=== PATIENT | male | born 1955 | race American Indian/Alaskan Native ===

== ENCOUNTER 2019-10-14 09:43 | Inpatient (IN) | payer OTHER ==
--- NOTE | 2019-10-14 10:29 | Emergency Department Report ---
HPI - General Chief Complaint: Dyspnea/Respdistress Time Seen by Provider: 10/14/19 10:18 - HPI HPI: This is a 64-year-old male who presents to the emergency department via EMS with a complaint of a few days of shortness of breath, mostly with exertion. However the patient is breathing fast while at rest sitting on the gurney. He also complains of chronic low back pain but his main reason for his hospital visit is the shortness of breath. He denies any chest pain, lower extremity swelling, cough, wheezing, nausea, vomiting or diaphoresis, but the patient does complain of intermittent subjective fever. He is a tobacco smoker but denies any illicit drug use. He denies any past medical history but has not seen a primary care physician in more than 20 years. No recent travel or sick contacts at home. No known exposure to anyone with Covid 19. ED Past Medical Hx - Past Medical History Previous Medical History?: No - Surgical History Past Surgical History?: No - Social History Smoking Status: Current Every Day Smoker Substance Use Type: None ED Review of Systems ROS: Stated complaint: MARGARITO Other details as noted in HPI Comment: All other systems reviewed and negative Constitutional: fever (subjective). denies: chills Eyes: denies: eye pain, vision change ENT: denies: ear pain, throat pain Respiratory: shortness of breath, SOB with exertion. denies: cough, wheezing Cardiovascular: denies: chest pain, edema Gastrointestinal: denies: abdominal pain, vomiting Genitourinary: denies: dysuria, discharge Musculoskeletal: denies: back pain, arthralgia Skin: denies: rash, lesions Neurological: denies: headache, weakness Physical Exam - Physical Exam Vital Signs: Vital Signs 10/14/19 10/14/19 10:13 10:17 Temperature 98.6 F Pulse Rate 106 H 111 H Respiratory 24 24 Rate Blood Pressure 121/19 Blood Pressure 115/95 [Left] O2 Sat by Pulse 97 97 Oximetry Physical Exam: GENERAL: The patient is well-developed well-nourished. HENT: Normocephalic. Atraumatic. Patient has moist mucous membranes. EYES: Extraocular motions are intact. NECK: Supple. Trachea is midline. CHEST/LUNGS: Clear to auscultation. Patient has tachypnea with some accessory muscle use. No cough heard during examination. HEART/CARDIOVASCULAR: Regular. There is mild tachycardia. There is no murmur. ABDOMEN: Abdomen is soft, nontender. Patient has normal bowel sounds. There is no abdominal distention. SKIN: Skin is warm and dry. NEURO: The patient is awake, alert, and oriented. The patient is cooperative. The patient has no focal neurologic deficits. Normal speech. MUSCULOSKELETAL: There is no tenderness or deformity. There is no limitation range of motion. ED Course Vital Signs 10/14/19 10/14/19 10:13 10:17 Temperature 98.6 F Pulse Rate 106 H 111 H Respiratory 24 24 Rate Blood Pressure 121/19 Blood Pressure 115/95 [Left] O2 Sat by Pulse 97 97 Oximetry - Consultations Consultation #1: 10/14/19 13:31 I spoke with the [place] physician, Dr. Zelaya, who is given us permission to admit this patient to our hospital and they will reevaluate tomorrow for possible transfer. ED Medical Decision Making - Lab Data Result diagrams: 10/14/19 10:57 10/14/19 17:07 - EKG Data -: EKG Interpreted by Me EKG shows normal: sinus rhythm, axis, intervals (prolonged RI interval), QRS complexes, ST-T waves (t wave inversions to diffuse leads) Rate: tachycardia (105 bpm) - EKG Data When compared to previous EKG there are: previous EKG unavailable 10/14/19 13:36 Sinus tach at 105 bpm, RI interval prolongation, T wave inversions to diffuse leads - Radiology Data Radiology results: image reviewed interpreted by me: Chest x-ray does not show any acute process. There are no pleural effusions, obvious pneumonia and there is no pneumothorax. No significant cardiomegaly. - Medical Decision Making This patient presents to the emergency department with a complaint of some shortness of breath that worsens with exertion. Without supplemental oxygen the patient does have tachypnea. Also at different times the patient will have adelina e mild hypoxia going as low as 92% on room air. He was placed on 2 L via nasal cannula but we continued to have to titrate up and the patient is now on a Venturi mask. Even with a Venturi mask the patient still has some tachypnea. Chest x-ray does not show any pneumonia, pleural effusions, pneumothorax, or any other acute process. The patient has some lab abnormalities. The patient has hyponatremia with a sodium of 122, low bicarb of 14, slightly elevated troponin of 0.036, and elevated inflammatory markers such as d-dimer, LDH, CRP and ferritin levels. Given the history of subjective fever, his shortness of breath, and the lab abnormalities, the patient is at least moderate suspicion for being COVID-19. The patient will be admitted to the hospital for further evaluation and treatment and was accepted for admission by the hospitalist service. The patient was placed in patient isolation and droplet precautions immediately upon arrival to the main emergency department. I wore full PPE gear including a surgical hat, goggles, N95 mask, surgical mask, gown, and double gloves for every encounter. Critical Care Time: Yes Critical care time in (mins) excluding proc time.: 35 Critical care attestation.: If time is entered above; I have spent that time in minutes in the direct care of this critically ill patient, excluding procedure time. My critical care time was spent on this patient during his initial evaluation, multiple re- evaluations, ordering interpretation of labs and imaging, discussion with the hospitalist service, discussion with the [place] physician, and multiple discussions with the patient. Critical Care Time: 35 minutes ED Disposition Clinical Impression: Suspected 2019 novel coronavirus infection, Hyponatremia syndrome, Elevated troponin, Elevated brain natriuretic peptide (BNP) level Dyspnea Qualifiers: Dyspnea type: shortness of breath Qualified Code(s): R06.02 - Shortness of breath; R06.00 - Dyspnea, unspecified; R06.01 - Orthopnea Disposition: OP ADMIT IP TO THIS HOSP Is pt being admited?: Yes Condition: Fair Time of Disposition: 13:34
[2019-10-14 11:19] LABS: Basophils % (Auto) 1.1 % (0.0-1.8); Eosinophils % (Auto) 0.9 % (0.0-4.3); Hemoglobin 14.5 gm/dl (11.8-15.2); Lymphocytes # (Auto) 0.9 K/mm3 (1.2-5.4); Lymphocytes % (Auto) 23.5 % (13.4-35.0); Mean Corpuscular HGB Conc 34 % (32-34); Mean Corpuscular Volume 89 fl (84-94); Monocytes # (Auto) 0.4 K/mm3 (0.0-0.8); Monocytes % (Auto) 9.7 % (0.0-7.3); Platelet Count 237 K/mm3 (140-440); Red Blood Count 4.82 M/mm3 (3.65-5.03); Red Cell Distribution Width 14.4 % (13.2-15.2)
[2019-10-14 11:27] LABS: INR 0.95 (0.87-1.13)
--- NOTE | 2019-10-14 11:31 | XRay Report ---
CHEST 1 VIEW INDICATION / CLINICAL INFORMATION: SOB. COMPARISON: None available. FINDINGS: SUPPORT DEVICES: None. HEART / MEDIASTINUM: No significant abnormality. LUNGS / PLEURA: No significant pulmonary or pleural abnormality. No pneumothorax. ADDITIONAL FINDINGS: No significant additional findings. IMPRESSION: No acute pulmonary or pleural abnormality Signer Name: Jese Johnson MD FACR Signed: 10/14/2019 11:27 AM Workstation Name: [id number]
[2019-10-14 11:38] LABS: Alanine Aminotransferase 29 units/L (7-56); Albumin 3.8 g/dL (3.9-5); BUN/Creatinine Ratio 15; Blood Urea Nitrogen 19 mg/dL (9-20); Calcium 10.1 mg/dL (8.4-10.2); Hemolysis Index 37
[2019-10-14 12:59] LABS: Chol/HDL Ratio 4.92 %; HDL Cholesterol 38 mg/dL (40-59); LDL Cholesterol,Direct 130 mg/dL (50-130)
--- NOTE | 2019-10-14 13:57 | History and Physical Report ---
History of Present Illness Date of examination: 10/14/19 Chief complaint: Shortness of breath History of present illness: 64-year-old male with no prior medical history presented to the emergency department via EMS with a complaint of a few days of shortness of breath, mostly with exertion. He denies any chest pain, lower extremity swelling, cough, wheezing, nausea, vomiting or diaphoresis, but the patient does complain of intermittent subjective fever. He is a tobacco smoker but denies any illicit drug use. No recent travel or sick contacts at home. No known exposure to anyone with Covid 19. Here in the ED, he was noted to have hyponatremia and respiratory failure and he was placed on oxygen and admitted to the hospital. Past History Past Medical History: No medical history Medications and Allergies Allergies Allergy/AdvReac Type Severity Reaction Status Date / Time No Known Allergies Allergy Unverified 10/14/19 12:13 Review of Systems Cardiovascular: shortness of breath Exam - Constitutional Vitals: Temp Pulse Resp BP Pulse Ox 98.6 F 111 H 24 115/95 98 10/14/19 10:13 10/14/19 10:17 10/14/19 10:17 10/14/19 10:17 10/14/19 10:17 General appearance: Present: no acute distress, well-nourished - EENT Eyes: Present: PERRL ENT: hearing intact, clear oral mucosa - Neck Neck: Present: supple, normal ROM - Respiratory Respiratory effort: normal Respiratory: bilateral: CTA - Cardiovascular Heart Sounds: Present: S1 & S2. Absent: rub, click - Extremities Extremities: pulses symmetrical, No edema Peripheral Pulses: within normal limits - Abdominal General gastrointestinal: Present: soft, non-tender, non-distended, normal bowel sounds Male genitourinary: Present: normal - Integumentary Integumentary: Present: clear, warm, dry - Musculoskeletal Musculoskeletal: gait normal, strength equal bilaterally - Psychiatric Psychiatric: appropriate mood/affect, intact judgment & insight - Neurologic Neurologic: CNII-XII intact, moves all extremities HEART Score - HEART Score Troponin: Troponin T 0.036 ng/mL (0.00-0.029) H 10/14/19 10:57 Results - Labs CBC & Chem 7: 10/14/19 10:57 10/14/19 12:14 Labs: Laboratory Last Values WBC 4.0 K/mm3 (4.5-11.0) L 10/14/19 10:57 RBC 4.82 M/mm3 (3.65-5.03) 10/14/19 10:57 Hgb 14.5 gm/dl (11.8-15.2) 10/14/19 10:57 Hct 43.0 % (35.5-45.6) 10/14/19 10:57 MCV 89 fl (84-94) 10/14/19 10:57 MCH 30 pg (28-32) 10/14/19 10:57 MCHC 34 % (32-34) 10/14/19 10:57 RDW 14.4 % (13.2-15.2) 10/14/19 10:57 Plt Count 237 K/mm3 (140-440) 10/14/19 10:57 Lymph % (Auto) 23.5 % (13.4-35.0) 10/14/19 10:57 [place] % (Auto) 9.7 % (0.0-7.3) H 10/14/19 10:57 Eos % (Auto) 0.9 % (0.0-4.3) 10/14/19 10:57 Baso % (Auto) 1.1 % (0.0-1.8) 10/14/19 10:57 Lymph # 0.9 K/mm3 (1.2-5.4) L 10/14/19 10:57 [place] # 0.4 K/mm3 (0.0-0.8) 10/14/19 10:57 Eos # 0.0 K/mm3 (0.0-0.4) 10/14/19 10:57 Baso # 0.0 K/mm3 (0.0-0.1) 10/14/19 10:57 Seg Neutrophils % 64.8 % (40.0-70.0) 10/14/19 10:57 Seg Neutrophils # 2.6 K/mm3 (1.8-7.7) 10/14/19 10:57 PT 12.8 Sec. (12.2-14.9) 10/14/19 10:57 INR 0.95 (0.87-1.13) 10/14/19 10:57 D-Dimer 390.46 ng/mlDDU (0-234) H 10/14/19 12:14 Sodium 122 mmol/L (137-145) L 10/14/19 10:57 Potassium 4.8 mmol/L (3.6-5.0) 10/14/19 10:57 Chloride 85.6 mmol/L (98-107) L 10/14/19 10:57 Carbon Dioxide 14 mmol/L (22-30) L 10/14/19 10:57 Anion Gap 27 mmol/L 10/14/19 10:57 BUN 19 mg/dL (9-20) 10/14/19 10:57 Creatinine 1.3 mg/dL (0.8-1.3) 10/14/19 10:57 Estimated GFR > 60 ml/min 10/14/19 10:57 BUN/Creatinine Ratio 15 % 10/14/19 10:57 Glucose 111 mg/dL (75-100) H 10/14/19 12:14 Calcium 10.1 mg/dL (8.4-10.2) 10/14/19 10:57 Ferritin 526.5 ng/mL (30.0-300.0) H 10/14/19 12:14 Total Bilirubin 0.90 mg/dL (0.1-1.2) 10/14/19 10:57 AST 35 units/L (5-40) 10/14/19 10:57 ALT 29 units/L (7-56) 10/14/19 10:57 Alkaline Phosphatase 91 units/L (35-129) 10/14/19 10:57 Lactate Dehydrogenase 271 units/L (91-180) H 10/14/19 12:14 Troponin T 0.036 ng/mL (0.00-0.029) H 10/14/19 10:57 C-Reactive Protein 5.00 mg/dL (0.00-1.30) H 10/14/19 12:14 NT-Pro-B Natriuret Pep 8397 pg/mL (0-900) H 10/14/19 10:57 Total Protein 8.2 g/dL (6.3-8.2) 10/14/19 10:57 Albumin 3.8 g/dL (3.9-5) L 10/14/19 10:57 Albumin/Globulin Ratio 0.9 % 10/14/19 10:57 Triglycerides 103 mg/dL (2-149) 10/14/19 10:57 Cholesterol 187 mg/dL (50-199) 10/14/19 10:57 LDL Cholesterol Direct 130 mg/dL (50-130) 10/14/19 10:57 HDL Cholesterol 38 mg/dL (40-59) L 10/14/19 10:57 Cholesterol/HDL Ratio 4.92 % 10/14/19 10:57 Procalcitonin < 0.05 ng/mL (<0.15) 10/14/19 12:14 Assessment and Plan Assessment and plan: 64 year old M with a history of chronic back pain here with shortness of breath. He states he has been having more shortness of breath in the past few days. Reported intermittent fever. No chest pain. Here in the ED, he was started on oxygen due to hypoxia. His labs showed hyponatremia and metabolic acidosis. - Patient Problems (1) Acute respiratory failure with hypoxia Current Visit: Yes Status: Acute Plan to address problem: Continue oxygen supplementation Stat ABG Check CTPE to rule out PE as his chest xray shows no clear infiltrates COVID-19 test ordered (2) Elevated brain natriuretic peptide (BNP) level Current Visit: Yes Status: Acute Plan to address problem: Check Echo (3) Suspected 2019 novel coronavirus infection Current Visit: Yes Status: Acute Plan to address problem: Start dexamethasone and empirical antibiotics COVID-19 test ID consult if positive Pulmonology consult pending result of the tests (4) Hyponatremia Current Visit: Yes Status: Acute Plan to address problem: Check serum osmolality, urine osmolality and electrolytes Fluid restriction for now Trend Na. BMP q6 (5) Metabolic acidosis Current Visit: Yes Status: Acute Plan to address problem: Likely compensatory vs primary disorder. Awaiting blood gas. Check lactic acid and blood gas (6) Elevated d-dimer Current Visit: Yes Status: Acute Plan to address problem: Can be seen with COVID 19. He has tachycardia and chest xray is clear. Wells score is 3 - moderate Check CTA chest STAT Empirically give one dose lovenox 80mg (7) Elevated troponin Current Visit: Yes Status: Acute Plan to address problem: Likely demand from hypoxia. He denies any chest pain Trend troponin Check echocardiogram (8) DVT prophylaxis Current Visit: Yes Status: Acute Plan to address problem: Lovenox 40 mg daily
[2019-10-14] MEDS ORDERED: ENOXAPARIN 100 MG/1 ML INJ SUB-Q ONE ×2 (16:38→17:00)
[2019-10-14] MEDS ORDERED: ALBUTEROL 2.5 MG/3 ML NEBU IH PRN (16:39)
[2019-10-14] MEDS ORDERED: ONDANSETRON 4 MG/2 ML INJ IV PRN (16:39)
[2019-10-14] MEDS ORDERED: ACETAMINOPHEN 325 MG TAB PO PRN (16:39)
[2019-10-14] MEDS ORDERED: HYDROcodone/ACETAMINOPHEN 5-325 MG TAB PO PRN (16:39)
[2019-10-14] MEDS ORDERED: cefTRIAXone/NS 1 GM/50 ML 1 GM/50 ML BAG IV ONE (16:54)
[2019-10-14] MEDS ORDERED: dexAMETHasone 4 MG/ML VIAL ONE (16:54)
[2019-10-14] MEDS ORDERED: dexAMETHasone 4 MG/ML VIAL IV SCH (17:00)
[2019-10-14] MEDS: cefTRIAXone/NS 1 GM/50 ML 1 GM/50 ML BAG IV SCH (17:11)
--- NOTE | 2019-10-14 17:55 | Cat Scan Report ---
CT angio chest INDICATION / CLINICAL INFORMATION: rule out PE. TECHNIQUE: Axial CT images were obtained through the chest after injection of IV contrast. 3 plane MIP and/or 3D reconstructions were produced. All CT scans at this location are performed using CT dose reduction f or ALARA by means of automated exposure control. COMPARISON: None available. FINDINGS: PULMONARY ARTERIES: No pulmonary emboli. Respiratory motion obscures the subsegmental pulmonary arter ies. HEART: No significant abnormality. Small quantity of coronary atherosclerotic calcifications. Trace p ericardial effusion. MEDIASTINUM / JACKI: No significant abnormality. LUNGS: Moderate centrilobular emphysema. Lungs are clear No pleural effusion. No pneumothorax. ADDITIONAL FINDINGS: None. UPPER ABDOMEN: No acute findings. SKELETAL STRUCTURES: No significant osseous abnormality. IMPRESSION: 1. No CT evidence for pulmonary embolism. 2. No acute findings. Moderate emphysema. Signer Name: John Su MD Signed: 10/14/2019 5:51 PM Workstation Name: [id number]
[2019-10-14 18:48] LABS: ABG Base Excess -8.5 mmol/L (-2.0-3.0); ABG HCO3 11.8 mmol/L (20.0-26.0); ABG Methemoglobin 0.6 % (0.0-1.5); ABG Oxygen Saturation 90.9 % (95.0-99.0); ABG PCO2 16.2 mm Hg; ABG PH 7.48 pH Units (7.350-7.450); ABG PO2 56.6 mm Hg (80.0-90.0)
[2019-10-15 01:16] LABS: BUN/Creatinine Ratio 15; Blood Urea Nitrogen 20 mg/dL (9-20); Calcium 9.8 mg/dL (8.4-10.2); Hemolysis Index 37
[2019-10-15 04:10] LABS: ABG Base Excess -9.6 mmol/L (-2.0-3.0); ABG HCO3 10.9 mmol/L (20.0-26.0); ABG Methemoglobin 0.6 % (0.0-1.5); ABG Oxygen Saturation 97.7 % (95.0-99.0); ABG PCO2 15.5 mm Hg; ABG PH 7.465 pH Units (7.350-7.450); ABG PO2 93.6 mm Hg (80.0-90.0)
[2019-10-15] MEDS ORDERED: SODIUM BICARB 8.4% 50 MEQ/50 ML SYRINGE IV ONE (06:01)
[2019-10-15 07:10] LABS: Basophils % (Auto) 0.9 % (0.0-1.8); Eosinophils % (Auto) 0.1 % (0.0-4.3); Hematocrit 41.9 % (35.5-45.6); Hemoglobin 14.1 gm/dl (11.8-15.2); Lymphocytes # (Auto) 1.1 K/mm3 (1.2-5.4); Lymphocytes % (Auto) 28.6 % (13.4-35.0); Mean Corpuscular HGB Conc 34 % (32-34); Mean Corpuscular Volume 88 fl (84-94); Monocytes # (Auto) 0.4 K/mm3 (0.0-0.8); Monocytes % (Auto) 9.4 % (0.0-7.3); Platelet Count 255 K/mm3 (140-440); Red Blood Count 4.76 M/mm3 (3.65-5.03); Red Cell Distribution Width 14.4 % (13.2-15.2)
[2019-10-15 07:16] LABS: Alanine Aminotransferase 28 units/L (7-56); Albumin 3.4 g/dL (3.9-5); BUN/Creatinine Ratio 18; Blood Urea Nitrogen 23 mg/dL (9-20); Hemolysis Index 70
--- NOTE | 2019-10-15 08:42 | XRay Report ---
CHEST 1 VIEW INDICATION: Shortness of breath. COMPARISON: One day prior. FINDINGS: Support devices: None. Heart: Stable. Lungs/Pleura: No acute pulmonary or pleural findings. IMPRESSION: 1. No significant change. Signer Name: Tucker Jay MD Signed: 10/15/2019 8:37 AM Workstation Name: [id number]
[2019-10-15] MEDS: cefTRIAXone/NS 1 GM/50 ML 1 GM/50 ML BAG IV SCH (10:48)
[2019-10-15] MEDS: DEXAMETHASONE 4 MG TAB PO SCH (10:51)
[2019-10-15] MEDS: AZITHROMYCIN 500 MG in SODIUM CHLORIDE 0.9% 250ML 250 ML IV SCH ×2 (11:00→11:59)
--- NOTE | 2019-10-15 15:57 | Progress Note ---
Assessment and Plan Assessment and plan: 64 year old M with a history of chronic back pain here with shortness of breath. He states he has been having more shortness of breath in the past few days. Reported intermittent fever. No chest pain. Here in the ED, he was started on oxygen due to hypoxia. His labs showed hyponatremia and metabolic acidosis. 10/14. Patient breathing is improved but patient still has metabolic acidosis. His sodium has improved to 126. Patient started on bicarb drip. Continue to monitor. Repeat labs. COVID-19 test negative - Patient Problems (1) Acute respiratory failure with hypoxia Current Visit: Yes Status: Acute Plan to address problem: Continue oxygen supplementation Check CTPE shows no PE COVID-19 test ordered (2) Elevated brain natriuretic peptide (BNP) level Current Visit: Yes Status: Acute Plan to address problem: Echocardiogram pending (3) Hyponatremia Current Visit: Yes Status: Acute Plan to address problem: Trend sodium Fluid restriction for now (4) Metabolic acidosis Current Visit: Yes Status: Acute Plan to address problem: Started on bicarb drip. Repeat lactic acid improved from previous. (5) Elevated d-dimer Current Visit: Yes Status: Acute Plan to address problem: CT PE negative for PE. Ultrasound lower extremity Doppler ordered (6) Elevated troponin Current Visit: Yes Status: Acute Plan to address problem: Likely demand from hypoxia. He denies any chest pain Check echocardiogram (7) DVT prophylaxis Current Visit: Yes Status: Acute Plan to address problem: Lovenox 40 mg daily History Interval history: See assessment and plan Hospitalist Physical - Constitutional Vitals: Temp Pulse Resp BP Pulse Ox 98.4 F 96 H 24 117/84 93 10/15/19 05:37 10/15/19 05:37 10/15/19 05:37 10/15/19 05:37 10/15/19 14:33 General appearance: Present: no acute distress, well-nourished - EENT Eyes: Present: PERRL - Respiratory Respiratory: bilateral: CTA - Cardiovascular Rhythm: regular Heart Sounds: Present: S1 & S2 - Extremities Extremities: No edema - Abdominal General gastrointestinal: soft, non-tender, non-distended, normal bowel sounds - Psychiatric Psychiatric: appropriate mood/affect - Neurologic Neurologic: CNII-XII intact HEART Score - HEART Score Troponin: Troponin T 0.036 ng/mL (0.00-0.029) H 10/14/19 10:57 Results - Labs CBC & Chem 7: 10/15/19 05:59 10/15/19 05:59 Labs: Laboratory Last Values WBC 3.8 K/mm3 (4.5-11.0) L 10/15/19 05:59 RBC 4.76 M/mm3 (3.65-5.03) 10/15/19 05:59 Hgb 14.1 gm/dl (11.8-15.2) 10/15/19 05:59 Hct 41.9 % (35.5-45.6) 10/15/19 05:59 MCV 88 fl (84-94) 10/15/19 05:59 MCH 30 pg (28-32) 10/15/19 05:59 MCHC 34 % (32-34) 10/15/19 05:59 RDW 14.4 % (13.2-15.2) 10/15/19 05:59 Plt Count 255 K/mm3 (140-440) 10/15/19 05:59 Lymph % (Auto) 28.6 % (13.4-35.0) 10/15/19 05:59 [place] % (Auto) 9.4 % (0.0-7.3) H 10/15/19 05:59 Eos % (Auto) 0.1 % (0.0-4.3) 10/15/19 05:59 Baso % (Auto) 0.9 % (0.0-1.8) 10/15/19 05:59 Lymph # 1.1 K/mm3 (1.2-5.4) L 10/15/19 05:59 [place] # 0.4 K/mm3 (0.0-0.8) 10/15/19 05:59 Eos # 0.0 K/mm3 (0.0-0.4) 10/15/19 05:59 Baso # 0.0 K/mm3 (0.0-0.1) 10/15/19 05:59 Seg Neutrophils % 61.0 % (40.0-70.0) 10/15/19 05:59 Seg Neutrophils # 2.3 K/mm3 (1.8-7.7) 10/15/19 05:59 PT 12.8 Sec. (12.2-14.9) 10/14/19 10:57 INR 0.95 (0.87-1.13) 10/14/19 10:57 D-Dimer 390.46 ng/mlDDU (0-234) H 10/14/19 12:14 ABG pH 7.465 pH Units (7.350-7.450) H 10/15/19 03:54 ABG pCO2 15.5 mm Hg 10/15/19 03:54 ABG pO2 93.6 mm Hg (80.0-90.0) H 10/15/19 03:54 ABG HCO3 10.9 mmol/L (20.0-26.0) L 10/15/19 03:54 ABG O2 Saturation 97.7 % (95.0-99.0) 10/15/19 03:54 ABG O2 Content 19.5 (0.0-44) 10/15/19 03:54 ABG Base Excess -9.6 mmol/L (-2.0-3.0) L 10/15/19 03:54 ABG Hemoglobin 14.4 gm/dl (14.0-18.0) 10/15/19 03:54 ABG Carboxyhemoglobin 1.0 % (0.0-5.0) 10/15/19 03:54 ABG Methemoglobin 0.6 % (0.0-1.5) 10/15/19 03:54 Oxyhemoglobin 96.1 % (95.0-99.0) 10/15/19 03:54 FiO2 40 % 10/15/19 03:54 Sodium 126 mmol/L (137-145) L 10/15/19 05:59 Potassium 5.0 mmol/L (3.6-5.0) 10/15/19 05:59 Chloride 90.1 mmol/L (98-107) L 10/15/19 05:59 Carbon Dioxide 13 mmol/L (22-30) L 10/15/19 05:59 Anion Gap 28 mmol/L 10/15/19 05:59 BUN 23 mg/dL (9-20) H 10/15/19 05:59 Creatinine 1.3 mg/dL (0.8-1.3) 10/15/19 05:59 Estimated GFR > 60 ml/min 10/15/19 05:59 BUN/Creatinine Ratio 18 % 10/15/19 05:59 Glucose 113 mg/dL (75-100) H 10/15/19 05:59 Osmolality 275 Mosm/kg 10/14/19 17:07 Lactic Acid 2.10 mmol/L (0.7-2.0) H* 10/15/19 00:29 Calcium 10.0 mg/dL (8.4-10.2) 10/15/19 05:59 Ferritin 526.5 ng/mL (30.0-300.0) H 10/14/19 12:14 Total Bilirubin 0.60 mg/dL (0.1-1.2) 10/15/19 05:59 AST 33 units/L (5-40) 10/15/19 05:59 ALT 28 units/L (7-56) 10/15/19 05:59 Alkaline Phosphatase 84 units/L (35-129) 10/15/19 05:59 Lactate Dehydrogenase 271 units/L (91-180) H 10/14/19 12:14 Troponin T 0.036 ng/mL (0.00-0.029) H 10/14/19 10:57 C-Reactive Protein 5.00 mg/dL (0.00-1.30) H 10/14/19 12:14 NT-Pro-B Natriuret Pep 8397 pg/mL (0-900) H 10/14/19 10:57 Total Protein 7.6 g/dL (6.3-8.2) 10/15/19 05:59 Albumin 3.4 g/dL (3.9-5) L 10/15/19 05:59 Albumin/Globulin Ratio 0.8 % 10/15/19 05:59 Triglycerides 103 mg/dL (2-149) 10/14/19 10:57 Cholesterol 187 mg/dL (50-199) 10/14/19 10:57 LDL Cholesterol Direct 130 mg/dL (50-130) 10/14/19 10:57 HDL Cholesterol 38 mg/dL (40-59) L 10/14/19 10:57 Cholesterol/HDL Ratio 4.92 % 10/14/19 10:57 Procalcitonin < 0.05 ng/mL (<0.15) 10/14/19 12:14 Urine Osmolality 337 Mosm/kg 10/14/19 Unknown Coronavirus (PCR) Negative (Negative) 10/14/19 10:00 Hazel/IV: Voiding Method Urinal IV Catheter Type [Left Forearm INT / Saline Lock ] Active Medications - Current Medications Current Medications: Generic Name Dose Route Start Last Admin Trade Name Freq PRN Reason Stop Dose Admin Acetaminophen 650 mg 10/14/19 16:39 Tylenol PO Q4H PRN Pain MILD(1-3)/Fever >100.5/LOPEZ Acetaminophen/Hydrocodone Bitart 2 each 10/14/19 16:39 [place]win 5/325 PO Q6H PRN Pain, Moderate (4-6) Albuterol 2.5 mg 10/14/19 16:39 Proventil IH Q4HRT PRN Shortness Of Breath Azithromycin 500 mg 10/16/19 10:00 Zithromax PO QDAY HEATHER Dexamethasone 6 mg 10/15/19 10:00 10/15/19 10:51 Decadron PO 10/23/19 10:01 6 mg DAILY HEATHER Administration Azithromycin 500 mg/ Sodium 250 mls @ 250 mls/hr 10/14/19 17:00 10/15/19 11:59 Chloride IV 10/15/19 16:59 250 mls/hr Q24HR HEATHER Administration Protocol Ceftriaxone Sodium 1 gm in 50 mls @ 100 mls/hr 10/14/19 17:00 10/15/19 10:48 Rocephin/Ns 1 Gm/50 Ml IV 100 mls/hr Q24HR HEATHER Administration Protocol Sodium Bicarbonate 150 meq/ 2,150 mls @ 100 mls/hr 10/15/19 16:00 Sodium Chloride IV 10/16/19 12:00 DIRECT HEATHER Ondansetron HCl 4 mg 10/14/19 16:39 Zofran IV Q8H PRN Nausea And Vomiting Sodium Chloride 10 ml 10/14/19 22:00 10/15/19 10:49 Sodium Chloride Flush Syringe 10 Ml IV 10 ml BID HEATHER Administration Sodium Chloride 10 ml 10/14/19 16:39 10/15/19 11:04 Sodium Chloride Flush Syringe 10 Ml IV 10 ml PRN PRN Administration LINE FLUSH Nutrition/Malnutrition Assess - Dietary Evaluation Nutrition/Malnutrition Findings: Nutrition Notes Start: 10/15/19 14:08 Freq: Status: Active Protocol: Document 10/15/19 14:08 LM (Rec: 10/15/19 14:08 LM [id number]) Nutrition Notes Need for Assessment generated from: remote broadcast engineer Initial or Follow up Brief Note Subjective/Other Information RN screen for skin risk. Chuck score is 21. Nutrition Intervention Revisit per MD consult or patient Sign Off request:
[2019-10-15] MEDS ORDERED: SODIUM CHLORIDE 0.9% IV SCH (16:00)
[2019-10-15] MEDS ORDERED: SODIUM BICARBONATE IV SCH (16:00)
--- NOTE | 2019-10-15 18:35 | Vascular Lab Report ---
DUPLEX DOPPLER LOWER EXTREMITY VEINS, BILATERAL INDICATION / CLINICAL INFORMATION: DVT. Lower extremity pain and swelling. TECHNIQUE: Duplex doppler imaging was performed through the veins of both lower extremities using venous marcus edward and other maneuvers. COMPARISON: None available. FINDINGS: Right Common Femoral vein: Negative. Right Femoral vein: Negative. Right Popliteal vein: Negative. Right Calf veins: Negative. Left Common Femoral vein: Negative. Left Femoral vein: Negative. Left Popliteal vein: Negative. Left Calf veins: Negative. Additional findings: None. IMPRESSION: 1. No sonographic evidence for DVT in either lower extremity. Signer Name: Surendra Burnett MD Signed: 10/15/2019 6:30 PM Workstation Name: [id number]
[2019-10-16 01:34] LABS: Alanine Aminotransferase 37 units/L (7-56); Albumin 3.3 g/dL (3.9-5); BUN/Creatinine Ratio 23; Blood Urea Nitrogen 27 mg/dL (9-20); Calcium 9.4 mg/dL (8.4-10.2); Hemolysis Index 13
[2019-10-16] MEDS: SODIUM BICARBONATE IV SCH (07:14)
[2019-10-16] MEDS: SODIUM CHLORIDE 0.9% IV SCH (07:14)
[2019-10-16] MEDS: DEXAMETHASONE 4 MG TAB PO SCH (10:20)
[2019-10-16] MEDS: SODIUM BICARBONATE 650 MG TAB PO SCH ×2 (10:20→21:06)
[2019-10-16] MEDS: AZITHROMYCIN 250 MG TAB PO SCH (10:21)
[2019-10-16] MEDS: cefTRIAXone/NS 1 GM/50 ML 1 GM/50 ML BAG IV SCH (10:30)
[2019-10-16 11:06] LABS: ABG Base Excess -4.9 mmol/L (-2.0-3.0); ABG HCO3 16.2 mmol/L (20.0-26.0); ABG Methemoglobin 0.4 % (0.0-1.5); ABG Oxygen Saturation 97.4 % (95.0-99.0); ABG PCO2 21.4 mm Hg; ABG PH 7.497 pH Units (7.350-7.450); ABG PO2 87.7 mm Hg (80.0-90.0)
--- NOTE | 2019-10-16 12:28 | Progress Note ---
Assessment and Plan Assessment and plan: 64 year old M with a history of chronic back pain here with shortness of breath. He states he has been having more shortness of breath in the past few days. Reported intermittent fever. No chest pain. Here in the ED, he was started on oxygen due to hypoxia. His labs showed hyponatremia and metabolic acidosis. 10/14. Patient breathing is improved but patient still has metabolic acidosis. His sodium has improved to 126. Patient started on bicarb drip. Continue to monitor. Repeat labs. COVID-19 test negative. 10/15. He feels better. Metabolic acidosis is improving. Sodium improved - 128. Continue bicarb drip. - Patient Problems (1) Acute respiratory failure with hypoxia Current Visit: Yes Status: Acute Plan to address problem: Continue oxygen supplementation Check CTPE shows no PE COVID-19 test negative He will follow up withj pulmonology at discharge for PFTs Continue steroids (2) Elevated brain natriuretic peptide (BNP) level Current Visit: Yes Status: Acute Plan to address problem: Echocardiogram performed but result is pending (3) Hyponatremia Current Visit: Yes Status: Acute Plan to address problem: Trend sodium Fluid restriction for now (4) Metabolic acidosis Current Visit: Yes Status: Acute Plan to address problem: Started on bicarb drip. Improving gradually Denies any diarrhea. (5) Elevated d-dimer Current Visit: Yes Status: Acute Plan to address problem: CT PE negative for PE. Ultrasound lower extremity Doppler negative for PE (6) Elevated troponin Current Visit: Yes Status: Acute Plan to address problem: Likely demand from hypoxia. He denies any chest pain Echocardiogram pending (7) DVT prophylaxis Current Visit: Yes Status: Acute Plan to address problem: Lovenox 40 mg daily History Interval history: See assessment and plan Hospitalist Physical - Constitutional Vitals: Temp Pulse Resp BP Pulse Ox 98.1 F 98 H 20 133/80 100 10/16/19 11:10/16/19 11:00 10/16/19 11:10/16/19 11:10/16/19 11:00 General appearance: Present: no acute distress, well-nourished - EENT Eyes: Present: PERRL - Neck Neck: Present: supple - Respiratory Respiratory: bilateral: CTA - Cardiovascular Rhythm: regular Heart Sounds: Present: S1 & S2 - Extremities Extremities: No edema - Abdominal General gastrointestinal: soft, non-tender, non-distended - Psychiatric Psychiatric: appropriate mood/affect - Neurologic Neurologic: CNII-XII intact HEART Score - HEART Score Troponin: Troponin T 0.036 ng/mL (0.00-0.029) H 10/14/19 10:57 Results - Labs CBC & Chem 7: 10/15/19 05:59 10/16/19 00:30 Labs: Laboratory Last Values WBC 3.8 K/mm3 (4.5-11.0) L 10/15/19 05:59 RBC 4.76 M/mm3 (3.65-5.03) 10/15/19 05:59 Hgb 14.1 gm/dl (11.8-15.2) 10/15/19 05:59 Hct 41.9 % (35.5-45.6) 10/15/19 05:59 MCV 88 fl (84-94) 10/15/19 05:59 MCH 30 pg (28-32) 10/15/19 05:59 MCHC 34 % (32-34) 10/15/19 05:59 RDW 14.4 % (13.2-15.2) 10/15/19 05:59 Plt Count 255 K/mm3 (140-440) 10/15/19 05:59 Lymph % (Auto) 28.6 % (13.4-35.0) 10/15/19 05:59 [place] % (Auto) 9.4 % (0.0-7.3) H 10/15/19 05:59 Eos % (Auto) 0.1 % (0.0-4.3) 10/15/19 05:59 Baso % (Auto) 0.9 % (0.0-1.8) 10/15/19 05:59 Lymph # 1.1 K/mm3 (1.2-5.4) L 10/15/19 05:59 [place] # 0.4 K/mm3 (0.0-0.8) 10/15/19 05:59 Eos # 0.0 K/mm3 (0.0-0.4) 10/15/19 05:59 Baso # 0.0 K/mm3 (0.0-0.1) 10/15/19 05:59 Seg Neutrophils % 61.0 % (40.0-70.0) 10/15/19 05:59 Seg Neutrophils # 2.3 K/mm3 (1.8-7.7) 10/15/19 05:59 PT 12.8 Sec. (12.2-14.9) 10/14/19 10:57 INR 0.95 (0.87-1.13) 10/14/19 10:57 D-Dimer 390.46 ng/mlDDU (0-234) H 10/14/19 12:14 ABG pH 7.497 pH Units (7.350-7.450) H 10/16/19 10:15 ABG pCO2 21.4 mm Hg 10/16/19 10:15 ABG pO2 87.7 mm Hg (80.0-90.0) 10/16/19 10:15 ABG HCO3 16.2 mmol/L (20.0-26.0) L 10/16/19 10:15 ABG O2 Saturation 97.4 % (95.0-99.0) 10/16/19 10:15 ABG O2 Content 17.7 (0.0-44) 10/16/19 10:15 ABG Base Excess -4.9 mmol/L (-2.0-3.0) L 10/16/19 10:15 ABG Hemoglobin 13.1 gm/dl (14.0-18.0) L 10/16/19 10:15 ABG Carboxyhemoglobin 1.2 % (0.0-5.0) 10/16/19 10:15 ABG Methemoglobin 0.4 % (0.0-1.5) 10/16/19 10:15 Oxyhemoglobin 95.9 % (95.0-99.0) 10/16/19 10:15 FiO2 21 % 10/16/19 10:15 Sodium 128 mmol/L (137-145) L 10/16/19 00:30 Potassium 4.0 mmol/L (3.6-5.0) 10/16/19 00:30 Chloride 93.8 mmol/L (98-107) L 10/16/19 00:30 Carbon Dioxide 14 mmol/L (22-30) L 10/16/19 00:30 Anion Gap 24 mmol/L 10/16/19 00:30 BUN 27 mg/dL (9-20) H 10/16/19 00:30 Creatinine 1.2 mg/dL (0.8-1.3) 10/16/19 00:30 Estimated GFR > 60 ml/min 10/16/19 00:30 BUN/Creatinine Ratio 23 % 10/16/19 00:30 Glucose 150 mg/dL (75-100) H 10/16/19 00:30 POC Glucose 111 (70-105) H 10/16/19 11:24 Osmolality 275 Mosm/kg 10/14/19 17:07 Lactic Acid 1.70 mmol/L (0.7-2.0) 10/16/19 00:30 Calcium 9.4 mg/dL (8.4-10.2) 10/16/19 00:30 Ferritin 526.5 ng/mL (30.0-300.0) H 10/14/19 12:14 Total Bilirubin 0.50 mg/dL (0.1-1.2) 10/16/19 00:30 AST 45 units/L (5-40) H 10/16/19 00:30 ALT 37 units/L (7-56) 10/16/19 00:30 Alkaline Phosphatase 77 units/L (35-129) 10/16/19 00:30 Lactate Dehydrogenase 271 units/L (91-180) H 10/14/19 12:14 Troponin T 0.036 ng/mL (0.00-0.029) H 10/14/19 10:57 C-Reactive Protein 5.00 mg/dL (0.00-1.30) H 10/14/19 12:14 NT-Pro-B Natriuret Pep 8397 pg/mL (0-900) H 10/14/19 10:57 Total Protein 7.0 g/dL (6.3-8.2) 10/16/19 00:30 Albumin 3.3 g/dL (3.9-5) L 10/16/19 00:30 Albumin/Globulin Ratio 0.9 % 10/16/19 00:30 Triglycerides 103 mg/dL (2-149) 10/14/19 10:57 Cholesterol 187 mg/dL (50-199) 10/14/19 10:57 LDL Cholesterol Direct 130 mg/dL (50-130) 10/14/19 10:57 HDL Cholesterol 38 mg/dL (40-59) L 10/14/19 10:57 Cholesterol/HDL Ratio 4.92 % 10/14/19 10:57 Procalcitonin < 0.05 ng/mL (<0.15) 10/14/19 12:14 Urine Osmolality 337 Mosm/kg 10/14/19 Unknown Coronavirus (PCR) Negative (Negative) 10/14/19 10:00 Hazel/IV: Voiding Method Urinal IV Catheter Type [Left Forearm INT / Saline Lock ] Active Medications - Current Medications Current Medications: Generic Name Dose Route Start Last Admin Trade Name Freq PRN Reason Stop Dose Admin Acetaminophen 650 mg 10/14/19 16:39 Tylenol PO Q4H PRN Pain MILD(1-3)/Fever >100.5/LOPEZ Acetaminophen/Hydrocodone Bitart 2 each 10/14/19 16:39 Sheldon 5/325 PO Q6H PRN Pain, Moderate (4-6) Albuterol 2.5 mg 10/14/19 16:39 Proventil IH Q4HRT PRN Shortness Of Breath Azithromycin 500 mg 10/16/19 10:00 10/16/19 10:21 Zithromax PO 500 mg QDAY HEATHER Administration Ceftriaxone Sodium 1 gm in 50 mls @ 100 mls/hr 10/14/19 17:00 10/16/19 10:30 Rocephin/Ns 1 Gm/50 Ml IV 100 mls/hr Q24HR HEATHER Administration Protocol Sodium Bicarbonate 75 meq/ 1,075 mls @ 100 mls/hr 10/15/19 17:00 10/16/19 07:14 Sodium Chloride IV 10/17/19 03:44 100 mls/hr DIRECT HEATHER Administration Ondansetron HCl 4 mg 10/14/19 16:39 Zofran IV Q8H PRN Nausea And Vomiting Prednisone 40 mg 10/16/19 13:00 Deltasone PO QDAY HEATHER Sodium Bicarbonate 1,300 mg 10/16/19 10:00 10/16/19 10:20 Sodium Bicarbonate PO 1,300 mg BID HEATHER Administration Sodium Chloride 10 ml 10/14/19 22:00 10/16/19 10:28 Sodium Chloride Flush Syringe 10 Ml IV 10 ml BID HEATHER Administration Sodium Chloride 10 ml 10/14/19 16:39 10/15/19 11:04 Sodium Chloride Flush Syringe 10 Ml IV 10 ml PRN PRN Administration LINE FLUSH Nutrition/Malnutrition Assess - Dietary Evaluation Nutrition/Malnutrition Findings: Nutrition Notes Start: 10/15/19 14:08 Freq: Status: Active Protocol: Document 10/15/19 14:08 LM (Rec: 10/15/19 14:08 LM [id number]) Nutrition Notes 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 Chuck score is 21. Nutrition Intervention Revisit per MD consult or patient Sign Off request:
[2019-10-16] MEDS: predniSONE 20 MG TAB PO SCH (13:39)
[2019-10-17] MEDS: SODIUM CHLORIDE 0.9% IV SCH (02:06)
[2019-10-17] MEDS: SODIUM BICARBONATE IV SCH (02:06)
[2019-10-17 04:49] LABS: Alanine Aminotransferase 45 units/L (7-56); Albumin 3.4 g/dL (3.9-5); BUN/Creatinine Ratio 22; Blood Urea Nitrogen 24 mg/dL (9-20); Hemolysis Index 2
[2019-10-17] MEDS: cefTRIAXone/NS 1 GM/50 ML 1 GM/50 ML BAG IV SCH (09:32)
[2019-10-17] MEDS: predniSONE 20 MG TAB PO SCH (09:33)
[2019-10-17] MEDS: AZITHROMYCIN 250 MG TAB PO SCH (09:33)
[2019-10-17] MEDS: SODIUM BICARBONATE 650 MG TAB PO SCH (09:33)
--- NOTE | 2019-10-17 10:53 | Discharge Summary ---
Providers - Providers Date of Admission: 10/15/19 14:53 Date of discharge: 10/17/19 Attending physician: ERIK KAUFFMAN [facility] Hospital course: 64 year old M with a history of chronic back pain here with shortness of breath. He states he has been having more shortness of breath in the past few days. Reported intermittent fever. No chest pain. Here in the ED, he was started on oxygen due to hypoxia. His labs showed hyponatremia and metabolic acidosis. 10/14. Patient breathing is improved but patient still has metabolic acidosis. His sodium has improved to 126. Patient started on bicarb drip. Continue to monitor. Repeat labs. COVID-19 test negative. CTA chest showed no PE. 10/15. He feels better. Metabolic acidosis is improving. Sodium improved - 128. Continue bicarb drip and sodium bicarb tablets 10/16. He feels great today. Labs better. Echocardiogram shows slightly reduced EF. He will need to see a trace clerk at discharge for medication optimization. I started him on low dose lasix. He says he has not seen a doctor in years. Disposition: [id number]-01 TO HOME OR SELFCARE - Discharge Diagnoses (1) Acute respiratory failure with hypoxia Status: Acute (2) Elevated brain natriuretic peptide (BNP) level Status: Acute (3) Hyponatremia Status: Acute (4) Metabolic acidosis Status: Acute (5) Elevated d-dimer Status: Acute (6) Elevated troponin Status: Acute (7) DVT prophylaxis Status: Acute Core Measure Documentation - Palliative Care Palliative Care/ Comfort Measures: Not Applicable - Core Measures Any of the following diagnoses?: none - Heart Failure Discharge Requirements MARELY/ARB for LVSD if EF <40%: Not Applicable Beta ifeanyi at discharge: Yes Exam - Constitutional Vitals: Temp Pulse Resp BP Pulse Ox 97.6 F 73 18 117/79 99 10/16/19 21:31 10/17/19 04:58 10/17/19 04:58 10/17/19 04:58 10/17/19 04:58 General appearance: Present: no acute distress, well-nourished - EENT Eyes: Present: PERRL ENT: hearing intact, clear oral mucosa - Neck Neck: Present: supple, normal ROM - Respiratory Respiratory effort: normal Respiratory: bilateral: CTA - Cardiovascular Heart Sounds: Present: S1 & S2. Absent: rub, click - Extremities Extremities: pulses symmetrical, No edema Peripheral Pulses: within normal limits - Abdominal General gastrointestinal: Present: soft, non-tender, non-distended, normal bowel sounds Male genitourinary: Present: normal - Integumentary Integumentary: Present: clear, warm, dry - Musculoskeletal Musculoskeletal: gait normal, strength equal bilaterally - Psychiatric Psychiatric: appropriate mood/affect, intact judgment & insight - Neurologic Neurologic: CNII-XII intact, moves all extremities Plan Diet: low salt Additional Instructions: Continue medications prescribed. Follow up with a trace clerk in 1-2 weeks. You need to follow-up with PCP [facility] MD RODNEY [Primary Care Provider] - 3-5 Days JON MAO MD [Staff Physician] - 7 Days Prescriptions: carvediloL [Coreg] 3.125 mg PO BID #60 tablet predniSONE [Deltasone] 40 mg PO QDAY #6 tablet Furosemide [Lasix] 20 mg PO QDAY #15 tablet Sodium Bicarbonate 1,300 mg PO BID #6 tablet Azithromycin [Zithromax TAB] 250 mg PO QDAY #2 tablet
[2019-10-17 14:17] VITALS: BP 117/77
== END 2019-10-17 16:30 | disposition home or self-care (01) | DRG 189 ==
LOC: ED 09:43 → 3A 13:34 → OBSVTOIN 10-15 14:53
PROVIDERS: ADMIT Internal Medicine; ATTEND Internal Medicine
DX: J96.01 Acute respiratory failure with hypoxia (principal); E87.1 Hypo-osmolality and hyponatremia; E87.2 Acidosis; R79.89 Other specified abnormal findings of blood chemistry; R79.1 Abnormal coagulation profile; F17.200 Nicotine dependence, unspecified, uncomplicated; G89.29 Other chronic pain; M54.9 Dorsalgia, unspecified; Z20.828 Contact with and (suspected) exposure to other viral communicable diseases
CPT/HCPCS: 36415; 36600; 71045; 71275; 80048; 80051; 80053; 80061; 82140; 82728; 82803; 82947; 82962; 83615; 83880; 83930; 83935; 84145; 84484; 85025; 85379; 85610; 86140; 93005; 93306; 93970; 94760; 99406; G0378; J0456; J0696; J1100; J1650; J7030; J7050; J7512; J8540; Q9967; U0003-CS